=== PATIENT | female | born 1970 | race African-American/Black ===

== ENCOUNTER 2022-12-25 20:51 | Emergency (ER) | payer OTHER ==
[2022-12-25 20:57] VITALS: RESP 18; TEMP 97.4; BMI 29.0
[2022-12-25] MEDS ORDERED: KETOROLAC TROMETHAMINE 30 MG/1 ML VIAL IM ONE (21:17)
[2022-12-25] MEDS ORDERED: DEXAMETHASONE SOD PHOSPHATE 10 MG/1 ML VIAL IM ONE (21:17)
[2022-12-25] MEDS ORDERED: DEXAMETHASONE SOD PHOSPHATE 10 MG/1 ML VIAL ONE (21:19)
[2022-12-25] MEDS ORDERED: KETOROLAC TROMETHAMINE 30 MG/1 ML VIAL ONE (21:19)
[2022-12-25] MEDS ORDERED: PENICILLIN G BENZATHINE 1,200,000 UNIT/2 ML PFS IM ONE ×2 (22:06→22:08)
[2022-12-25 22:27] VITALS: BP 170/72; PULSE 92
== END 2022-12-25 22:29 | disposition home or self-care (01) ==
LOC: JERFT 20:51 → JER 20:51 → JERFT 22:29
PROC: 3E0233Z Introduction of Anti-inflammatory into Muscle, Percutaneous Approach (ICD-10-PCS; principal; 2022-12-25)
PROC: 3E0233Z Introduction of Anti-inflammatory into Muscle, Percutaneous Approach (ICD-10-PCS; 2022-12-25)
PROC: 3E02329 Introduction of Other Anti-infective into Muscle, Percutaneous Approach (ICD-10-PCS; 2022-12-25)
DX: J02.0 Streptococcal pharyngitis (principal)
CPT/HCPCS: 0241U-QW; 87651; 99284-25; J1100

== ENCOUNTER 2023-07-21 10:42 | Emergency (ER) | payer OTHER ==
[2023-07-21 10:51] VITALS: BMI 35.5
[2023-07-21] MEDS ORDERED: ONDANSETRON *ODT* 4 MG TABLET SL ONE (11:42)
[2023-07-21] MEDS ORDERED: ACETAMINOPHEN 325 MG TABLET (FP) PO ONE (11:42)
[2023-07-21 11:47] LABS: EPI CELLS 12 /uL (0-25.1); HYALINE CASTS 0 /uL (0-3.1); PH,URINE 7.5 (5.0-8.0); URINE APPEARANCE CLEAR; URINE BACTERIA 5744 /uL (0-1359); URINE BILIRUBIN NEGATIVE (NEGATIVE); URINE COLOR YELLOW; URINE GLUCOSE (UA) NEGATIVE (NEGATIVE); URINE KETONE NEGATIVE (NEGATIVE); URINE LEUK ESTERASE 1+ (NEGATIVE); URINE NITRITE NEGATIVE (NEGATIVE); URINE PROTEIN NEGATIVE (NEGATIVE); URINE RBC 838 /uL (0-23.9); URINE WBC 83 /uL (0-25.8)
[2023-07-21] MEDS ORDERED: ACETAMINOPHEN 325 MG TABLET (FP) ONE ×2 (11:52→11:53)
[2023-07-21] MEDS ORDERED: ONDANSETRON *ODT* 4 MG TABLET ONE (11:52)
[2023-07-21 14:27] LABS: BASO % 0.3 % (0-2.0); EOS % 0.4 % (0-4.5); HEMATOCRIT 40.1 % (32.4-45.2); HEMOGLOBIN 13.5 GM/dL (10.7-15.3); LYMPH % 11.8 % (8-40); MCH 27.9 pg (25.7-33.7); MCHC 33.8 g/dl (32.0-36.0); MEAN CELL VOLUME 82.5 fl (80-96); MEAN PLT VOLUME 7.9 fl (7.5-11.1); MONO % 7.8 % (3.8-10.2); NEUT % 79.7 % (42.8-82.8); PLATELET COUNT 310 10^3/uL (134-434); RBC 4.85 M/mm3 (3.60-5.2); RDW 14.9 % (11.6-15.6); WHITE BLOOD COUNT 9.9 K/mm3 (4.0-10.0)
[2023-07-21] MEDS ORDERED: CEFTRIAXONE 1,000 MG in DEXTROSE 5%-WATER - 50 ML IVPB ONE (14:28)
[2023-07-21] MEDS ORDERED: CEFTRIAXONE 1 GM/50 ML BAG ONE (14:31)
[2023-07-21 14:47] LABS: BLOOD UREA NITROGEN 10.4 mg/dL (7-18); CALCIUM 8.9 mg/dL (8.5-10.1)
[2023-07-21 14:51] LABS: CREATININE 0.8 mg/dL (0.55-1.3)
[2023-07-21 14:53] LABS: BILIRUBIN,TOTAL 0.7 mg/dL (0.2-1); TOT PROT 7.8 g/dl (6.4-8.2)
[2023-07-21 15:15] LABS: INR 1.11 (0.83-1.09); PROTHROMBIN TIME (PATIENT) 12.9 SEC (9.7-13.0)
[2023-07-21 16:44] VITALS: BP 185/88; PULSE 72; RESP 16; TEMP 98
== END 2023-07-21 16:45 | disposition home or self-care (01) ==
LOC: JER 10:42
DX: N23 Unspecified renal colic (principal); N39.0 Urinary tract infection, site not specified; R59.9 Enlarged lymph nodes, unspecified
CPT/HCPCS: 36415; 74176-TC; 80053; 81003; 85025; 85610; 85730; 86850; 86900; 86901; 87086; 87186; 99284-25; Q0162